=== PATIENT | female | born 2000 | race Caucasian/White ===

== ENCOUNTER 2021-11-11 00:54 | Emergency (ER) | payer OTHER ==
[2021-11-11 01:08] VITALS: BP 104/61; PULSE 90; TEMP 99.2
== END 2021-11-11 01:17 | disposition home or self-care (01) ==
LOC: FER 00:54
PROC: 0HQ1XZZ Repair Face Skin, External Approach (ICD-10-PCS; principal; 2021-11-11)
DX: S01.81XA Laceration without foreign body of other part of head, initial encounter (principal); W26.8XXA Contact with other sharp object(s), not elsewhere classified, initial encounter
CPT/HCPCS: 99282-25